=== PATIENT | female | born 1990 | race Hispanic/Latino ===

== ENCOUNTER 2021-06-26 06:18 | Emergency (ER) | payer BC ==
[~2021-06-26] VITALS: Ht 167.6 cm; Wt 99.8 kg
[2021-06-26] MEDS ORDERED: ONDANSETRON HCL 4 MG ORAL DISINTEGRATING TAB PO ONE (07:15)
[2021-06-26] MEDS ORDERED: PREDNISONE 20 MG TAB PO ONE (07:15)
[2021-06-26] MEDS ORDERED: KETOROLAC TROMETHAMINE 30 MG/ML VIAL IM ONE (07:15)
[2021-06-26] MEDS ORDERED: HYDROCODONE/APAP 5MG-325MG TAB PO ONE (07:15)
[2021-06-26] MEDS ORDERED: IBUPROFEN IB200 MG PO (07:44)
[2021-06-26] MEDS ORDERED: ULTRAM50 MG PO (07:44)
[2021-06-26] MEDS ORDERED: ZANAFLEX4 MG PO (07:44)
[2021-06-26] MEDS ORDERED: ACETAMINOPHEN500 MG PO (07:44)
== END 2021-06-26 08:59 | disposition home or self-care (01) ==
LOC: FSED 07:01
DX: S13.4XXA Sprain of ligaments of cervical spine, initial encounter (principal); X50.1XXA Overexertion from prolonged static or awkward postures, initial encounter; Y92.008 Other place in unspecified non-institutional (private) residence as the place of occurrence of the external cause
CPT/HCPCS: 72040; 96372; 99283; J1885; J7512; Q0162

== ENCOUNTER 2024-05-18 20:22 | Emergency (ER) | payer BC ==
[~2024-05-18] VITALS: Ht 167.6 cm; Wt 106.6 kg
[~2024-05-18 20:22] MED LIST: ACETAMINOPHEN500 MG PO; IBUPROFEN IB200 MG PO; ULTRAM50 MG PO; ZANAFLEX4 MG PO
[2024-05-18 20:40] VITALS: PULSE 82; RESP 16; TEMP 97.7
[2024-05-18] MEDS ORDERED: IBUPROFEN800 MG PO (21:12)
[2024-05-18] MEDS ORDERED: METHOCARBAMOL750 MG PO (21:13)
[2024-05-18] MEDS: IBUPROFEN 400 MG TAB PO STA (21:44)
[2024-05-18] MEDS: CYCLOBENZAPRINE HCL 10 MG TAB PO ONE (21:45)
[2024-05-18] MEDS: ACETAMINOPHEN 325 MG TAB PO ONE (21:45)
[2024-05-18 22:13] VITALS: BP 123/70; PULSE 77; RESP 17; TEMP 97.7; O2SAT 97
== END 2024-05-18 21:31 | disposition home or self-care (01) ==
LOC: FSED 20:24
DX: S13.4XXA Sprain of ligaments of cervical spine, initial encounter (principal); V43.53XA Car driver injured in collision with pick-up truck in traffic accident, initial encounter; Y92.488 Other paved roadways as the place of occurrence of the external cause; J45.909 Unspecified asthma, uncomplicated; E78.5 Hyperlipidemia, unspecified
CPT/HCPCS: 99283